=== PATIENT | female | born 1990 | race Caucasian/White ===

== ENCOUNTER 2017-08-13 12:49 | Emergency (ER) | payer OTHER ==
[2017-08-13 12:49] VITALS: BMI 34.5
[2017-08-13 12:57] VITALS: BP 131/83; PULSE 104; RESP 18; TEMP 97.9; O2SAT 98
--- NOTE | 2017-08-13 14:57 | C.PDOC ---
History Of Present Illness 26 year old female presents to the ED for evaluation of sore throat associated with body aches and subjective fever since last night. Patient states she "lost her voice last night." She denies vomiting, diarrhea, chest pain, shortness of breath, and recent travel. Time Seen by Provider: 08/13/17 13:02 Chief Complaint (Nursing): ENT Problem History Per: Patient History/Exam Limitations: no limitations Onset/Duration Of Symptoms: Hrs Current Symptoms Are (Timing): Still Present Location Of Pain: Throat Associated Symptoms: Fever, Sore Throat. denies: Vomiting, Diarrhea Additional History Per: Patient Past Medical History Reviewed: Historical Data, Nursing Documentation, Vital Signs Vital Signs: Last Vital Signs Temp 97.9 F 08/13/17 12:54 Pulse 104 H 08/13/17 12:54 Resp 18 08/13/17 12:54 BP 131/83 08/13/17 12:54 Pulse Ox 98 08/13/17 21:34 - Medical History PMH: Asthma, Seizures Denies: Depression, Chronic Kidney Disease Surgical History: Tonsillectomy - [facility] Procedures DPT ADMINISTRATION (06/24/13) EXTRACTION OF POC, LOW CERVICAL, OPEN APPROACH (07/21/15) MONITORING NOS (05/11/15) INJECT/INFUSE NEC (03/07/12) MONITORING OF POC, CARDIAC RATE, RAD TECH APPROACH (07/21/15) Family History: States: Unknown Family Hx - Social History Hx Tobacco Use: Yes (0.25 PPD) Hx Alcohol Use: No Hx Substance Use: No - Immunization History Hx Tetanus Toxoid Vaccination: No Hx Influenza Vaccination: No Hx Pneumococcal Vaccination: No Review Of Systems Constitutional: Positive for: Fever ENT: Positive for: Throat Pain Cardiovascular: Negative for: Chest Pain Respiratory: Negative for: Shortness of Breath Gastrointestinal: Negative for: Vomiting, Diarrhea Musculoskeletal: Positive for: Other (generalized body aches ) Physical Exam - Physical Exam Appears: Non-toxic, No Acute Distress Skin: Normal Color, Warm, Dry, No Rash Head: Atraumatic, Normacephalic Eye(s): bilateral: Normal Inspection, PERRL, EOMI Ear(s): Bilateral: Normal Nose: Normal, No Discharge Oral Mucosa: Moist Throat: Erythema (moderate), No Exudate Neck: Normal ROM, Supple Lymphatic: Adenopathy (cervical ) Chest: Symmetrical, No Deformity, No Tenderness Cardiovascular: Rhythm Regular, No Murmur Respiratory: Normal Breath Sounds, No Rales, No Rhonchi, No Wheezing Gastrointestinal/Abdominal: Soft, No Tenderness Extremity: Normal ROM, Capillary Refill (less than 2 seconds ) Neurological/Psych: Oriented x3, Normal Speech, Normal Cognition, Normal Motor Gait: Steady ED Course And Treatment O2 Sat by Pulse Oximetry: 98 (on RA) Pulse Ox Interpretation: Normal Medical Decision Making Medical Decision Making: Amoxicillin PO and Motrin PO administered. Disposition - Disposition Referrals: [facility] at [facility] [Outside] Disposition: HOME/ ROUTINE Disposition Time: 14:54 Condition: GOOD Additional Instructions: Follow up with the medical doctor within 1-2 days. Return if worsened. Prescriptions: Amoxicillin [Amoxil 500 mg Cap] 500 mg PO TID #29 cap Ibuprofen [Motrin] 600 mg PO TID #21 tab Instructions: Pharyngitis (ED) Forms: [facility] (Georgian), Work Excuse - Clinical Impression Clinical Impression: Pharyngitis - PA / COPYIST / Resident Statement MD/DO has reviewed & agrees with the documentation as recorded. - Scribe Statement The provider has reviewed the documentation as recorded by the Scribe (Jill Chapin) All medical record entries made by the Scribe were at my direction and personally dictated by me. I have reviewed the chart and agree that the record accurately reflects my personal performance of the history, physical exam, medical decision making, and the department course for this patient. I have also personally directed, reviewed, and agree with the discharge instructions and disposition.
== END 2017-08-13 15:02 | disposition home or self-care (01) ==
LOC: C.ER 12:49
DX: J02.9 Acute pharyngitis, unspecified (principal); Z72.0 Tobacco use

== ENCOUNTER 2018-01-14 10:58 | Emergency (ER) | payer OTHER ==
[2018-01-14 10:58] VITALS: BMI 34.5
[2018-01-14 11:23] VITALS: TEMP 98.4
[2018-01-14 11:58] LABS: ARTERIAL BLOOD GAS HEMOGLOBIN 13.5 g/dL (11.7-17.4); ARTERIAL BLOOD GAS O2 SAT 68.9 % (95-98)
--- NOTE | 2018-01-14 12:09 | C.PDOC ---
History Of Present Illness 27yo female with history of asthma, presents to ED for evaluation after exposure to CO at work. Patient states she was in the office when the carbon monoxide alarm went off. She reports feeling lightheaded, prompting her ER visit. Patient denies any loss of consciousness. She has no other medical complaints. Time Seen by Provider: 01/14/18 11:35 Chief Complaint (Nursing): Chemical Exposure History Per: Patient History/Exam Limitations: no limitations Onset/Duration Of Symptoms: Other (prior to arrival) Additional History Per: Patient Past Medical History Reviewed: Historical Data, Nursing Documentation, Vital Signs Vital Signs: Last Vital Signs Temp 98.4 F 01/14/18 11:17 Pulse 101 H 01/14/18 12:50 Resp 18 01/14/18 12:50 BP 143/91 H 01/14/18 12:50 Pulse Ox 95 01/14/18 12:50 - Medical History PMH: Asthma, Seizures Surgical History: Tonsillectomy - [facility] Procedures DPT ADMINISTRATION (06/24/13) EXTRACTION OF POC, LOW CERVICAL, OPEN APPROACH (07/21/15) MONITORING NOS (05/11/15) INJECT/INFUSE NEC (03/07/12) MONITORING OF POC, CARDIAC RATE, DRINK BOX MECHANIC APPROACH (07/21/15) Family History: States: No Known Family Hx, Unknown Family Hx - Social History Hx Tobacco Use: Yes (0.25 PPD) Hx Alcohol Use: No Hx Substance Use: No - Immunization History Hx Tetanus Toxoid Vaccination: No Hx Influenza Vaccination: No Hx Pneumococcal Vaccination: No Review Of Systems Except As Marked, All Systems Reviewed And Found Negative. Cardiovascular: Positive for: Light Headedness Respiratory: Negative for: Shortness of Breath Neurological: Negative for: Other (loss of consciuosness) Physical Exam - Physical Exam Appears: Non-toxic, No Acute Distress Skin: Normal Color, Warm, Dry Head: Atraumatic, Normacephalic Eye(s): bilateral: Normal Inspection, PERRL Cardiovascular: Rhythm Regular Respiratory: Normal Breath Sounds, No Wheezing Neurological/Psych: Oriented x3 ED Course And Treatment O2 Sat by Pulse Oximetry: 96 (RA) Pulse Ox Interpretation: Normal Medical Decision Making Medical Decision Making: Impression: CO exposure Plan: -- Patient given O2 via non-rebreather for over 30 minutes Blood drawn to evaluate CO level 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 Patient reports improvement of symptoms. Patient feels comfortable going home and will be discharged. Patient given follow up instructions. Instructed to return to ER if symptoms worsen or new symptoms arise. Disposition Counseled Patient/Family Regarding: Diagnosis, Need For Followup - Disposition Disposition: HOME/ ROUTINE Disposition Time: 12:34 Condition: GOOD Additional Instructions: You were evaluated and treated for CO exposure. Please allow rest and drink fluids and breathe in fresh air, avoid any smoke Follow up with your primary medical doctor or clinic in 2-5 days for further evaluation Return to the emergency department at any time if symptoms persist or worsen. Instructions: Carbon Monoxide Poisoning (DC) Forms: [employer] (Serbian) - POA Present On Arrival: None - Clinical Impression Clinical Impression: Carbon monoxide exposure - PA / PVC LOADER / Resident Statement MD/DO has reviewed & agrees with the documentation as recorded. - Scribe Statement The provider has reviewed the documentation as recorded by the Scribe (Katherine Lockhart) Provider Attestation: All medical record entries made by the Scribe were at my direction and personally dictated by me. I have reviewed the chart and agree that the record accurately reflects my personal performance of the history, physical exam, medical decision making, and the department course for this patient. I have also personally directed, reviewed, and agree with the discharge instructions and disposition.
[2018-01-14 12:51] VITALS: BP 143/91; PULSE 101; RESP 18
[2018-01-14 13:36] VITALS: O2SAT 96
--- NOTE | 2018-01-17 17:20 | CARD ---
APPROVED REPORT EKG Measurement Heart [id number] <Conclusion> Normal sinus rhythm Normal ECG
== END 2018-01-14 12:51 | disposition home or self-care (01) ==
LOC: C.ER 10:58
DX: Z77.098 Contact with and (suspected) exposure to other hazardous, chiefly nonmedicinal, chemicals (principal)

== ENCOUNTER 2018-05-06 09:43 | Emergency (ER) | payer OTHER ==
[2018-05-06 09:43] VITALS: BMI 34.5
[2018-05-06 09:50] VITALS: O2SAT 96
[2018-05-06 10:12] VITALS: RESP 20
[2018-05-06] MEDS: Albuterol 0.083% Inhal Sol (2.5 mg/3 mL) UD INH SCH ×2 (10:15→10:39)
[2018-05-06] MEDS ORDERED: Albuterol-Ipratrop 3 mg / 0.5 (3 ml) UD ONE (10:16)
[2018-05-06 11:24] VITALS: BP 127/81; PULSE 99; TEMP 98.1
--- NOTE | 2018-05-06 11:24 | C.PDOC ---
History Of Present Illness 27 y/o female presents to the ER complaining of cough, sore throat, runny nose, and chest congestion x 4 days. Patient states that she has significant hoarseness which began today. Patient denies having fever, chills, nausea, and vomiting. Time Seen by Provider: 05/06/18 09:54 Chief Complaint (Nursing): Shortness Of Breath History Per: Patient History/Exam Limitations: no limitations Onset/Duration Of Symptoms: Days Current Symptoms Are (Timing): Still Present Severity: Moderate Past Medical History Reviewed: Historical Data, Nursing Documentation, Vital Signs Vital Signs: Last Vital Signs Temp 98.1 F 05/06/18 11:24 Pulse 99 H 05/06/18 11:24 Resp 20 05/06/18 11:24 BP 127/81 05/06/18 11:24 Pulse Ox 96 05/06/18 11:36 - Medical History PMH: Asthma, Seizures Denies: Depression, Chronic Kidney Disease Surgical History: Tonsillectomy - [facility] Procedures DPT ADMINISTRATION (06/24/13) EXTRACTION OF POC, LOW CERVICAL, OPEN APPROACH (07/21/15) MONITORING NOS (05/11/15) INJECT/INFUSE NEC (03/07/12) MONITORING OF POC, CARDIAC RATE, COATER SLATE APPROACH (07/21/15) Family History: States: No Known Family Hx - Social History Hx Tobacco Use: Yes (0.25 PPD) Hx Alcohol Use: No Hx Substance Use: No - Immunization History Hx Tetanus Toxoid Vaccination: No Hx Influenza Vaccination: No Hx Pneumococcal Vaccination: No Review Of Systems Except As Marked, All Systems Reviewed And Found Negative. Constitutional: Negative for: Fever, Chills ENT: Positive for: Nose Discharge (runny nose), Throat Pain Respiratory: Positive for: Cough Physical Exam - Physical Exam Appears: Non-toxic, No Acute Distress, Other (awake, alert, cooperative) Skin: Normal Color, Warm, Dry Head: Atraumatic, Normacephalic Eye(s): bilateral: Normal Inspection Ear(s): Bilateral: Normal Nose: Normal Oral Mucosa: Moist Throat: Erythema (mild erythema to posterior pharynx), Other (hoarse voice) Neck: Supple Chest: Symmetrical Cardiovascular: Rhythm Regular Respiratory: No Rales, No Rhonchi, Wheezing (mild wheezing bilaterally) Neurological/Psych: Oriented x3, Normal Speech ED Course And Treatment O2 Sat by Pulse Oximetry: 96 (RA) Pulse Ox Interpretation: Normal Medical Decision Making Medical Decision Making: Plan: --Albuterol --Prednisone --Nebulizer Disposition Counseled Patient/Family Regarding: Diagnosis, Need For Followup, Rx Given - Disposition Referrals: [facility] [Outside] Disposition: HOME/ ROUTINE Disposition Time: 11:22 Condition: STABLE Additional Instructions: Follow up with your doctor or our clinic. Prescriptions: Albuterol HFA [Ventolin HFA 90 mcg/actuation (8 g)] 1 puff IH QID PRN #1 puff PRN Reason: Cough Benzonatate [Tessalon Perles] 100 mg PO TID PRN #12 sgl PRN Reason: Cough Prednisone [Deltasone] 60 mg PO DAILY #12 tablet Instructions: Laryngitis Forms: General Discharge Instructions, [facility] (Sinhala), Work Excuse - POA Present On Arrival: None - Clinical Impression Clinical Impression: Bronchitis, Laryngitis acute, spasmodic - Scribe Statement The provider has reviewed the documentation as recorded by the Yolanda Britt Provider Attestation: All medical record entries made by the Yolanda were at my direction and personally dictated by me. I have reviewed the chart and agree that the record accurately reflects my personal performance of the history, physical exam, medical decision making, and the department course for this patient. I have also personally directed, reviewed, and agree with the discharge instructions and disposition.
== END 2018-05-06 11:30 | disposition home or self-care (01) ==
LOC: C.ER 09:43
DX: J04.0 Acute laryngitis (principal); J40 Bronchitis, not specified as acute or chronic

== ENCOUNTER 2018-12-30 11:27 | Emergency (ER) | payer OTHER ==
[2018-12-30 11:58] VITALS: BMI 34.5
[2018-12-30] MEDS ORDERED: Naproxen 550 mg Tab PO STA (13:21)
[2018-12-30] MEDS ORDERED: Naproxen 550 mg Tab PO ONE (13:35)
--- NOTE | 2018-12-30 14:18 | C.PDOC ---
History Of Present Illness 28-year-old female presents to the ED for evaluation of bilateral lower back pain which began approx two days ago. Patient states that her pain is constant and nonradiating. She denies fever, abdominal pain, dysuria, hematuria, or recent falls/injuries. Time Seen by Provider: 12/30/18 12:59 Chief Complaint (Nursing): Back Pain History Per: Patient History/Exam Limitations: no limitations Onset/Duration Of Symptoms: Days (2) Current Symptoms Are (Timing): Still Present Quality Of Discomfort: "Pain" Previous Symptoms: Back Pain Associated Symptoms: None. denies: Incontinence, New Weakness, New Numbness Past Medical History Reviewed: Historical Data, Nursing Documentation, Vital Signs Vital Signs: Last Vital Signs Temp 99.2 F 12/30/18 11:58 Pulse 96 H 12/30/18 11:58 Resp 17 12/30/18 11:58 BP 143/89 12/30/18 11:58 Pulse Ox 98 12/30/18 11:58 Primary Care Provider: FAMILY PROVIDER,NO - Medical History PMH: Asthma, Bronchitis, Seizures Surgical History: Tonsillectomy - [facility] Procedures DPT ADMINISTRATION (06/24/13) EXTRACTION OF POC, LOW CERVICAL, OPEN APPROACH (07/21/15) MONITORING NOS (05/11/15) INJECT/INFUSE NEC (03/07/12) MONITORING OF POC, CARDIAC RATE, FLIGHT OPERATIONS INSPECTOR APPROACH (07/21/15) Family History: States: No Known Family Hx - Social History Hx Tobacco Use: Yes (0.25 PPD) Hx Alcohol Use: No Hx Substance Use: No - Immunization History Hx Tetanus Toxoid Vaccination: No Hx Influenza Vaccination: No Hx Pneumococcal Vaccination: No Review Of Systems Constitutional: Negative for: Fever, Chills Gastrointestinal: Negative for: Abdominal Pain Genitourinary: Negative for: Dysuria, Hematuria Musculoskeletal: Positive for: Back Pain (bilateral, lower ). Negative for: Leg Pain, Foot Pain Neurological: Negative for: Weakness, Numbness Physical Exam - Physical Exam Appears: Well, Non-toxic, No Acute Distress, Other (in mild pain ) Skin: Normal Color, Warm, Dry, No Rash Head: Normacephalic Oral Mucosa: Moist Neck: Supple Cardiovascular: Rhythm Regular Respiratory: Normal Breath Sounds, No Rales, No Rhonchi, No Wheezing Gastrointestinal/Abdominal: Normal Exam, Bowel Sounds, Soft, No Tenderness Back: No CVA Tenderness, No Vertebral Tenderness, Paraspinal Tenderness (lumbar) Extremity: Normal ROM, Capillary Refill (< 2 sec all digits ) Neurological/Psych: Oriented x3, Normal Speech, Normal Cognition, Normal Motor, Normal Sensation ED Course And Treatment O2 Sat by Pulse Oximetry: 98 (on RA) Pulse Ox Interpretation: Normal - CT Scan/US LS Spine AP/LAT Other Rad Studies (CT/US): Read By Radiologist, Radiology Report Reviewed CT/US Interpretation: Date of service: 12/30/2018. PROCEDURE: Radiographs of the Lumbar Spine. HISTORY: LOW BACK PAIN. COMPARISON: None available. FINDINGS: BONES: Alignment appears satisfactory. No listhesis. No acute displaced fracture identified. DISC SPACES: Unremarkable. OTHER FINDINGS: None. IMPRESSION: No acute displaced fracture or subluxation identified. Progress Note: Naproxen PO, Flexeril PO, and Lidoderm patch administered. Upreg POC and Xrays of LS spine ordered and reviewed. Reevaluation Time: 14:20 Reassessment Condition: Improved (On reassessment, patient is resting comfortably and states pain has improved. She is ambulating normally in the ED. Rxs for Naprosyn and Flexeril given, and patient instructed to follow up with PMD/clinic in 1-2 days. She understands she should return to ED if symptoms worsen.) Disposition Counseled Patient/Family Regarding: Studies Performed, Diagnosis, Need For Followup, Rx Given - Disposition Referrals: [facility] [Outside] Disposition: HOME/ ROUTINE Disposition Time: 14:20 Condition: STABLE Additional Instructions: FOLLOW UP WITH YOUR DOCTOR OR IN MEDICAL CLINIC IN 1-2 DAYS USE MEDICATIONS NEEDED RETURN TO EMERGENCY ROOM IF YOUR SYMPTOMS BECOME WORSE SEGUIR CON OTERO MDICO O EN LA CLNICA MDICA EN 1-2 DELGADO USAR MEDICAMENTOS MI SE NECESITE VUELVA A LA JO DE EMERGENCIA SI MARTINEZ SNTOMAS SE HACEN PEOR Prescriptions: Cyclobenzaprine [Flexeril] 10 mg PO BID PRN #15 tab PRN Reason: Muscle Spasm Naproxen 375 mg PO BID PRN #20 tablet PRN Reason: pain Instructions: Low Back Pain (DC) Forms: [employer] (Mosotho), Work Excuse Print Language: LUXEMBOURGISH - POA Present On Arrival: None - Clinical Impression Clinical Impression: Lumbar sprain, Low back pain - Scribe Statement The provider has reviewed the documentation as recorded by the Scribe (Jill Chapin) Provider Attestation: All medical record entries made by the Scribe were at my direction and personally dictated by me. I have reviewed the chart and agree that the record accurately reflects my personal performance of the history, physical exam, medical decision making, and the department course for this patient. I have also personally directed, reviewed, and agree with the discharge instructions and disposition.
[2018-12-30] MEDS ORDERED: Lidocaine 5% Patch TD STA (14:29)
--- NOTE | 2018-12-30 14:38 | RAD ---
Date of service: 12/30/2018 PROCEDURE: Radiographs of the Lumbar Spine. HISTORY: LOW BACK PAIN COMPARISON: None available. FINDINGS: BONES: Alignment appears satisfactory. No listhesis. No acute displaced fracture identified. DISC SPACES: Unremarkable. OTHER FINDINGS: None. IMPRESSION: No acute displaced fracture or subluxation identified.
[2018-12-30] MEDS ORDERED: Lidocaine 5% Patch TD ONE (14:42)
[2018-12-30 15:09] VITALS: BP 108/70; PULSE 82; RESP 18; TEMP 99.1
[2018-12-31 00:19] VITALS: O2SAT 98
== END 2018-12-30 14:20 | disposition home or self-care (01) ==
LOC: C.ER 11:27
DX: S33.5XXA Sprain of ligaments of lumbar spine, initial encounter (principal); X58.XXXA Exposure to other specified factors, initial encounter; M54.5 Low back pain; F17.210 Nicotine dependence, cigarettes, uncomplicated

== ENCOUNTER 2019-01-12 12:09 | Emergency (ER) | payer OTHER ==
[2019-01-12 12:09] VITALS: BMI 34.5
[2019-01-12 12:34] VITALS: BP 145/81; PULSE 95; RESP 18; TEMP 99.4; O2SAT 97
--- NOTE | 2019-01-12 13:08 | C.PDOC ---
History Of Present Illness RECUR LARYNGITIS LAST NIGHT. +SORE THROAT X 2 DAYS NO FEVER. LIMITED IMPROVE W NSAIDS, TYLENOL, MOUTH GARGLES. HO FREQ LARYNGITIS, PRIOR ER VISITS FOR SAME. NO PRIOR ENT EVAL EXAM NONTOXIC NARD HEENT THROAT CLEAR; NO STRIDOR, STROOL; UVULA MIDLINE. +LARNGITIS REMAINDER NEG MDM STEROID, ENT REFERRAL Time Seen by Provider: 01/12/19 12:48 Chief Complaint (Nursing): ENT Problem History Per: Patient History/Exam Limitations: no limitations Onset/Duration Of Symptoms: Days Current Symptoms Are (Timing): Still Present Severity: Moderate Past Medical History Reviewed: Historical Data, Nursing Documentation, Vital Signs Vital Signs: Last Vital Signs Temp 99.4 F 01/12/19 12:32 Pulse 95 H 01/12/19 12:32 Resp 18 01/12/19 12:32 BP 145/81 01/12/19 12:32 Pulse Ox 97 01/12/19 12:32 Primary Care Provider: FAMILY PROVIDER,NO - Medical History PMH: Asthma, Bronchitis, Seizures Denies: Depression, Chronic Kidney Disease Surgical History: Tonsillectomy - [facility] Procedures DPT ADMINISTRATION (06/24/13) EXTRACTION OF POC, LOW CERVICAL, OPEN APPROACH (07/21/15) MONITORING NOS (05/11/15) INJECT/INFUSE NEC (03/07/12) MONITORING OF POC, CARDIAC RATE, BARREL POLISHER INSIDE APPROACH (07/21/15) Family History: States: No Known Family Hx - Social History Hx Tobacco Use: Yes (0.25 PPD) Hx Alcohol Use: No Hx Substance Use: No - Immunization History Hx Tetanus Toxoid Vaccination: No Hx Influenza Vaccination: No Hx Pneumococcal Vaccination: No Review Of Systems Except As Marked, All Systems Reviewed And Found Negative. Constitutional: Negative for: Fever, Chills ENT: Positive for: Throat Pain Respiratory: Negative for: Cough Gastrointestinal: Negative for: Nausea, Vomiting, Abdominal Pain Physical Exam - Physical Exam Appears: Non-toxic, Other (NARD) Skin: Normal Color, Warm, Dry Head: Atraumatic, Normacephalic Eye(s): bilateral: Normal Inspection Nose: Normal Oral Mucosa: Moist Throat: Other (throat clear; no stridor, no strooling; uvula midline, + laryngitis) Neck: Supple Chest: Symmetrical Cardiovascular: Rhythm Regular Respiratory: Other (NARD) Neurological/Psych: Oriented x3, Normal Speech ED Course And Treatment O2 Sat by Pulse Oximetry: 97 (RA) Pulse Ox Interpretation: Normal Medical Decision Making Medical Decision Making: STEROID, ENT REFERRAL Disposition Counseled Patient/Family Regarding: Diagnosis, Need For Followup, Rx Given - Disposition Referrals: Peter Rolle MD [Staff Provider] - Disposition: HOME/ ROUTINE Disposition Time: 13:06 Condition: GOOD Prescriptions: Dexamethasone [Decadron] 12 mg PO ONCE #2 tablet Instructions: Laryngitis (DC) Forms: [employer] ([place]), Work Excuse - Clinical Impression Clinical Impression: Laryngitis - Scribe Statement The provider has reviewed the documentation as recorded by the Yolanda Britt Provider Attestation: All medical record entries made by the Yolanda were at my direction and personally dictated by me. I have reviewed the chart and agree that the record accurately reflects my personal performance of the history, physical exam, medical decision making, and the department course for this patient. I have also personally directed, reviewed, and agree with the discharge instructions and disposition.
== END 2019-01-12 13:15 | disposition home or self-care (01) ==
LOC: C.ER 12:09
DX: J04.0 Acute laryngitis (principal); F17.210 Nicotine dependence, cigarettes, uncomplicated